=== PATIENT | male | born 1990 | race Caucasian/White ===

== ENCOUNTER 2024-01-28 22:43 | Emergency (ER) | payer BC ==
[2024-01-28 23:32] LABS: AMPHETAMINES,URINE NEGATIVE (NEGATIVE); BARBITURATES,URINE NEGATIVE (NEGATIVE); BENZODIAZEPINE,URINE NEGATIVE (NEGATIVE); MDMA (ECSTASY), URINE NEGATIVE (NEGATIVE); METHADONE,URINE NEGATIVE (NEGATIVE); METHAMPHETAMINES,URINE NEGATIVE (NEGATIVE); OPIATES,URINE NEGATIVE (NEGATIVE); OXYCODONE,URINE NEGATIVE (NEGATIVE); PHENCYCLIDINE,URINE NEGATIVE (NEGATIVE); TCA,URINE NEGATIVE (NEGATIVE)
[2024-01-29] MEDS: Sodium Chloride 0.9% 1,000 ML IV ONE (01:15)
== END 2024-01-29 00:50 | disposition home or self-care (01) ==
LOC: CC.ED 22:43
DX: F12.10 Cannabis abuse, uncomplicated (principal)
CPT/HCPCS: 80305-QW; 99283; 99285